=== PATIENT | female | born 1995 | race Native Hawaiian/Other Pacific Islander ===

== ENCOUNTER 2016-09-25 16:34 | Inpatient (IN) | payer OTHER ==
[2016-09-25 16:54] VITALS: O2SAT 99
--- NOTE | 2016-09-25 17:56 | ED PDOC ---
HPI: Psych/Substance Abuse Time Seen by Provider: 09/25/16 17:08 Chief Complaint (Nursing): Psychiatric Evaluation Chief Complaint (Provider): suicidal ideation History Per: Patient History/Exam Limitations: no limitations Additional Complaint(s): Stella Miller is a 21 year old female, with a previous medical history of anxiety, depression and bipolar disorder, who presents to the ED via EMS for psychiatric evaluation after she expressed to [employer] that she hates her job and has been experiencing intermittent thoughts of hurting herself. Patient denies suicidal ideation, homicidal ideation or hallucinations. PMD: none provided Past Medical History Reviewed: Historical Data, Nursing Documentation, Vital Signs Vital Signs: Last Vital Signs Temp 98.1 F 09/25/16 16:45 Pulse 74 09/25/16 16:45 Resp 18 09/25/16 16:45 BP 127/77 09/25/16 16:45 Pulse Ox 99 09/25/16 16:45 - Medical History PMH: Anxiety, Bipolar Disorder, Depression - Surgical History Surgical History: No Surg Hx - Family History Family History: States: No Known Family Hx - Living Arrangements Living Arrangements: With Family - Home Medications Home Medications: Ambulatory Orders Medication Instructions Recorded QUEtiapine [SEROquel] 50 mg PO AMHS #60 tab 09/29/16 - Allergies Allergies/Adverse Reactions: Allergies Allergy/AdvReac Type Severity Reaction Status Date / Time No Known Allergies Allergy Verified 09/25/16 16:45 Review of Systems ROS Statement: Except As Marked, All Systems Reviewed And Found Negative Psych: Positive for: Suicidal ideation Physical Exam - Reviewed Nursing Documentation Reviewed: Yes Vital Signs Reviewed: Yes - Physical Exam Appears: Positive for: Well, Non-toxic, No Acute Distress Head Exam: Positive for: ATRAUMATIC, NORMAL INSPECTION, NORMOCEPHALIC Skin: Positive for: Normal Color, Warm, Dry Eye Exam: Positive for: Normal appearance ENT: Positive for: Normal ENT Inspection Neck: Positive for: Normal Cardiovascular/Chest: Positive for: Regular Rate, Rhythm Respiratory: Positive for: CNT, Normal Breath Sounds Gastrointestinal/Abdominal: Positive for: Normal Exam, Bowel Sounds, Soft Back: Positive for: Normal Inspection Neurologic/Psych: Positive for: Alert, Oriented - Laboratory Results Result Diagrams: 09/25/16 19:00 09/25/16 19:00 - ECG O2 Sat by Pulse Oximetry: 99 (RA) Pulse Ox Interpretation: Normal Medical Decision Making Medical Decision Making: Initial Impression: Suicidal ideation Initial Plan: * physical exam * crisis evaluation During initial H and P pt denied current SI however, patient admitted to pit crew support worker that she had suicidal ideation and will be placed on a 1:1 observation. 1824 - charge nurse aware of 1:1 order. 1855 - Radha Peters at bedside for 1:1. Scribe Attestation: Documented by Ml Dale, acting as a scribe for Luma Yanes PA-C. Provider Scribe Attestation: All medical record entries made by the Scribe were at my direction and personally dictated by me. I have reviewed the chart and agree that the record accurately reflects my personal performance of the history, physical exam, medical decision making, and the department course for this patient. I have also personally directed, reviewed, and agree with the discharge instructions and disposition. Disposition - Clinical Impression Clinical Impression: Suicidal ideation - Disposition Disposition Time: 19:57 Condition: STABLE - Pt Status Changed To: Hospital Disposition Of: Inpatient - Admit Certification Admit to Inpatient:: After my assessment, the patient will require hospitalization for at least two midnights. This is because of the severity of symptoms shown, intensity of services needed, and/or the medical risk in this patient being treated as an outpatient.
[2016-09-25 19:16] LABS: HEMATOCRIT 37.8 % (34.0-47.0); MEAN CELL VOLUME 90.6 fl (81.0-99.0); MEAN CORPUSCULAR HEMOGLOBIN 29.1 pg (27.0-31.0); MEAN CORPUSCULAR HGB CONC 32.2 g/dL (33.0-37.0); RED CELL DISTRIBUTION WIDTH 13.4 % (11.5-14.5); WHITE BLOOD COUNT 6.6 K/uL (4.8-10.8)
[2016-09-25 19:24] LABS: RBC URINE 3 /hpf (0-3); URINE BACTERIA FEW (<OCC); URINE BILIRUBIN NEGATIVE (NEGATIVE); URINE BLOOD NEGATIVE (NEGATIVE); URINE COLOR STRAW (YELLOW); URINE GLUCOSE (UA) NEG (Normal); URINE KETONE 20 mg/dL (NEGATIVE); URINE LEUKOCYTE ESTERASE NEG Leu/uL (Negative); URINE PROTEIN NEGATIVE (NEGATIVE); URINE UROBILINOGEN 0.2-1.0 mg/dL (0.2-1.0); WBC URINE < 1 /hpf (0-5)
[2016-09-25 19:28] LABS: ALB/GLOB RATIO 1.5 (1.0-2.1); ALCOHOL SERUM < 10 mg/dl (0-10); ALKALINE PHOSPHATASE 43 U/L (38-126); ALT/SGPT 27 U/L (9-52); AST/SGOT 24 U/L (14-36); BILIRUBIN,TOTAL 0.5 mg/dl (0.2-1.3); BLOOD UREA NITROGEN 17 mg/dl (7-17); CALCIUM 9.5 mg/dL (8.4-10.2); CARBON DIOXIDE 25 mmol/L (22-30); CHLORIDE 103 mmol/L (98-107); GFR AFRICAN-AMERICAN > 60; GLUCOSE,RANDOM 78 mg/dL (65-105); POTASSIUM 3.8 MMOL/L (3.6-5.0); SODIUM 139 mmol/l (132-148); TOTAL PROTEIN 7.7 G/DL (6.3-8.2)
[2016-09-25] MEDS ORDERED: DiphenhydrAMINE 50 mg/ml Inj IM PRN (22:27)
[2016-09-25] MEDS ORDERED: Alum-Mag Hydrox-Simethicone Susp (30 mL) PO PRN (22:27)
[2016-09-25] MEDS ORDERED: Magnesium Hydroxide Susp 30 ml UD PO PRN (22:27)
[2016-09-27 08:14] LABS: T4 5.83 ug/dl (5.5-11.0)
[2016-09-27 08:28] LABS: THYROID STIMULATING HORMONE 1.25 mIU/ML (0.46-4.68)
--- NOTE | 2016-09-27 11:22 | PCM.PYCHPN ---
Psychiatric Progress Note - Psychiatric Progress Note Patient seen today, length of contact: discussed with team Patient Chief Complaint: i hope i can go today Problems Identified/Issues Discussed: pt reports she is not feeling overly sedated, but does feel more calm. she reports she felt a little more tired in the morning than usual. she is less irritable. she is attending groups and participating. Medication Change: No Medical Record Reviewed: Yes Mental Status Examination - Cognitive Function Orientation: Person, Place, Situation, Time Memory: Intact Attention: WNL Concentration: WNL Association: WNL Fund of Knowledge: WN Decription of patient's judgement and insights: fair - Mood Mood: Anxious - Affect Affect: Other Additional comments: labile - Speech Speech: Appropriate - Formal Thought Process Formal Thought Process: No Impairment - Suicidal Ideation Suicidal Ideation: No - Homicidal Ideation Homicidal Ideation: No Goal/Treatment Plan - Goal/Treatment Plan Need for Continued Stay: Remain at risks for inpatient hospitalization, Severe functional impairment Progress Toward Problem(s) and Goals/Treatment Plan: bipolar disorder, mixed will continue current treatment disposition planning
--- NOTE | 2016-09-27 14:54 | CP.PCM.CON ---
History of Present Illness - History of Present Illness History of Present Illness: 21 y/o female with no significant PMH diagnosed with mood disorder/ bipolar disorder for the last 1 year. Patient has tried zoloft and Amitriptiline inthe past with some improvement of her symptoms. She was referred for psychiatric eval from the at her work after she expressed thoughts of suicide , stating that wanted to kill herself. Patient states that she feels very anxious, stressed and alone. Medicine consult called as part of protocol. At present denies any suicidal thoughts or ideation. She denies any CP, SOB, palpitations, PND, Orthopnea, urinary symptoms or changes in bowel movements. She is pretty active person and likes to exercise a lot Allergies ; NKDA PMH ; Bipolar / mood disorder Medications; Was on Zoloft , switched to amytriptiline and now on Seroquel Surgery ; None Family history ; Father has DM Social history ; single, family parents , brother and sister live in [place], lives with roommates in [place], denies any toxic habits, ETOH , smoking, or drug abuse, works as programer [employer] ; 10 piont review of system negative except above Review of Systems - Review of Systems All systems: reviewed and no additional remarkable complaints except Past Patient History - Infectious Disease Hx of Infectious Diseases: None - Tetanus Immunizations Tetanus Immunization: Unknown - Past Medical History & Family History Past Medical History?: Yes Past Family History: Reviewed and not pertinent - Past Social History Smoking Status: Never Smoked Chewing Tobacco Use: No Cigar Use: No Alcohol: None Drugs: Denies Home Situation {Lives}: Alone Domestic Violence: Negative - CARDIAC Hx Cardiac Disorders: No - PULMONARY Hx Respiratory Disorders: No - NEUROLOGICAL Hx Neurological Disorder: No - HEENT Hx HEENT Problems: No - RENAL Hx Chronic Kidney Disease: No - ENDOCRINE/METABOLIC Hx Endocrine Disorders: No - HEMATOLOGICAL/ONCOLOGICAL Hx Blood Disorders: No - INTEGUMENTARY Hx Dermatological Problems: No - MUSCULOSKELETAL/RHEUMATOLOGICAL Hx Musculoskeletal Disorders: No - GASTROINTESTINAL Hx Gastrointestinal Disorders: No - GENITOURINARY/GYNECOLOGICAL Hx Genitourinary Disorders: No - PSYCHIATRIC Hx Bipolar Disorder: Yes Hx Depression: Yes Hx Substance Use: Yes (Marijuana) - SURGICAL HISTORY Hx Surgeries: No - ANESTHESIA Hx Anesthesia: No Meds Allergies/Adverse Reactions: Allergies Allergy/AdvReac Type Severity Reaction Status Date / Time No Known Allergies Allergy Verified 09/25/16 16:45 - Medications Medications: Current Medications Acetaminophen (Tylenol 325mg Tab) 650 mg PO Q4 PRN PRN Reason: Pain, moderate (4-7) Al Hydrox/Mg Hydrox/Simethicone (Maalox Plus 30 Ml) 30 ml PO Q4 PRN PRN Reason: Dyspepsia Diphenhydramine HCl (Benadryl) 50 mg IM Q6 PRN PRN Reason: Extrapyramidal S/S Unable PO Diphenhydramine HCl (Benadryl) 50 mg PO HS PRN PRN Reason: Sleep Haloperidol (Haldol) 5 mg PO Q4 PRN PRN Reason: Agitation Haloperidol Lactate (Haldol) 5 mg IM Q4 PRN PRN Reason: Agitation, Unable to Take PO Lorazepam (Ativan) 2 mg IM Q4 PRN PRN Reason: Anxiety/Agitation,Unable PO Lorazepam (Ativan) 2 mg PO Q4 PRN PRN Reason: Anxiety/Agitation Magnesium Hydroxide (Milk Of Magnesia) 30 ml PO HS PRN PRN Reason: Constipation Quetiapine Fumarate (Seroquel) 25 mg PO [facility] Last Admin: 09/27/16 10:56 Dose: 25 mg Physical Exam - Constitutional Appears: Well, Non-toxic, No Acute Distress - Head Exam Head Exam: ATRAUMATIC, NORMAL INSPECTION, NORMOCEPHALIC - Eye Exam Eye Exam: EOMI, Normal appearance, PERRL Pupil Exam: NORMAL ACCOMODATION - ENT Exam ENT Exam: Mucous Membranes Moist, Normal Exam - Neck Exam Neck exam: Positive for: Full Rom, Normal Inspection - Respiratory Exam Respiratory Exam: Clear to Auscultation Bilateral, NORMAL BREATHING PATTERN. absent: Rales, Rhonchi, Wheezes - Cardiovascular Exam Cardiovascular Exam: REGULAR RHYTHM, RRR, +S1, +S2. absent: JVD - GI/Abdominal Exam GI & Abdominal Exam: Normal Bowel Sounds, Soft. absent: Distended, Guarding, Rebound, Tenderness - Rectal Exam Rectal Exam: Deferred - Extremities Exam Extremities exam: Positive for: normal capillary refill, normal inspection, pedal pulses present. Negative for: calf tenderness, pedal edema - Back Exam Back exam: NORMAL INSPECTION - Neurological Exam Neurological exam: Alert, CN II-XII Intact, Oriented x3, Reflexes Normal - Skin Skin Exam: Dry, Intact, Normal Color, Warm Results - Vital Signs Recent Vital Signs: Last Vital Signs Temp 98.2 F 09/25/16 21:08 Pulse 78 09/25/16 22:21 Resp 20 09/25/16 22:21 BP 134/68 09/25/16 21:08 Pulse Ox 99 09/25/16 21:08 - Labs Result Diagrams: 09/25/16 19:00 09/25/16 19:00 Labs: Laboratory Results - last 24 hr 09/27/16 09/27/16 07:36 07:36 Hemoglobin A1c 5.1 Triglycerides 35 Cholesterol 130 LDL Cholesterol Direct 56 HDL Cholesterol 66 Thyroxine (T4) 5.83 TSH 3rd Generation 1.25 Assessment & Plan (1) Bipolar disorder Status: Acute Priority: High Comment: Management as per psych. Patient is medically stable. Reconsult if needed.
--- NOTE | 2016-09-28 10:23 | PCM.PYCHPN ---
Psychiatric Progress Note - Psychiatric Progress Note Patient seen today, length of contact: discussed with team Patient Chief Complaint: the nurse at night said that i am on the wrong medication Problems Identified/Issues Discussed: pt reports the night nurse told her the doctor had her on the wrong medication because "i have bipolar and seroquel doesn't treat bipolar disorder." pt remains labile and can be calm and agreeable with treatment and within minutes become loud, intrusive, combative and demading to leave the hospital immediately. pt had talked to sister and was aware of plan for sister to take her to [place], this weekend or early next week, but pt still became loud, agitated and demanding discharge yesterday directly after talking to her sister. pt and this newswriter have discussed use of a mood stabilizer- lithium, to target her symptoms, however pt does not want to take mood stabilizer and was agreeable to take seroquel. she is, at this time, agreeing to the increase in seroquel dose [place] [facility] [place] Change: No Medical Record Reviewed: Yes Mental Status Examination - Cognitive Function Orientation: Person, Place, Situation, Time Memory: Intact Attention: WNL Concentration: WNL Association: [facility] Fund of Knowledge: [facility] Decription of patient's judgement and insights: variable insight, poor judgment, poor impulse control - Mood Mood: Depressed, Anxious, Other (irritable/labile) - Affect Affect: Other - Speech Speech: Appropriate (at times loud) - Formal Thought Process Formal Thought Process: Hallucinations Psychotic Thoughts and Behaviors: his "clanging" noise, has heard a voice saying her name recently. - Suicidal Ideation Suicidal Ideation: No - Homicidal Ideation Homicidal Ideation: No Goal/Treatment Plan - Goal/Treatment Plan Need for Continued Stay: Remain at risks for inpatient hospitalization, Severe functional impairment Progress Toward Problem(s) and Goals/Treatment Plan: bipolar disorder, mixed will continue current treatment increase the seroquel to 50mg bid pt is being screened for involuntary hospitalization as she is impulsive, labile and has demanded discharge. she states she has been having suicidal thoughts, she has a history of impulsive suicide attempt in march. at this time it appears the pt may be risk to secondary to this poor impulse control and her mood lability. Estimated Date of D/C: 10/02/16 - Smoking Cessation Smoking Cessation Initiated: No
--- NOTE | 2016-09-29 10:58 | PCM.PYCHDC ---
Mental Status Examination - Mental Status Examination Orientation: Person, Place, Situation, Time Memory: Intact Mood: Other (labile) Affect: Broad Speech: Appropriate Attention: WNL Concentration: WNL Association: WNL Fund of Knowledge: WNL Formal Thought Process: No Impairment Description of patient's judgement and insight: variable insight. improved judgment and impulse control Psychotic Thoughts and Behaviors: denies current A/V hallucinations Suicidal Ideation: No Current Homicidal Ideation?: No Plan: denies suicidal or homicidal thoughts Discharge Summary - Discharge Note Reason for Hospitalization: pt expressed suicidal thoughts to a counselor at work. Psychiatric History (includes Medical, Family, Personal Hx): history of treatment for depression from her primary care doctor Consultations:: List each consultation separately and include: 1. Reason for request. 2. Findings. 3. Follow-up Consultations: seen by the hospitalist Summary of Hospital Course include:: 1. Description of specific treatment plan utilized for patients during their course of treatmen. 2. Summarize the time- course for resolution of acute symptoms and/or regressed behaviors. 3. Describe issues identified and worked on during hospitalization. 4. Describe medication utilized. 5. Describe medical problems identified and treated. 6. Reassessment of suicide risk Summary of Hospital Course: pt was admitted to [facility] and oriented to the unit. pt was placed on routine safety protocols. pt was started on seroquel to address her mood symptoms. she was labile and impulsive. she did take medications. she attended groups. she was argumentative with staff and the treatment team. she demanded to leave the hospital on 2 different occasions. she signed a 48 hour notice. the patient was seen by the screeners from [facility] [place] and was not found to meet criteria for involuntary hospitalization. this press writer and the treatment team were in contact with the patient's sister, Tamiko, who will take the pt to [place] and will seek treatment for the patient in that area. the patient's mother will be arriving from [place] and will be helping to care for the patient. at the time of discharge the patient was denying suicidal or homicidal thoughts. - Final Diagnosis (DSM 5) Condition upon Discharge: STABLE DSM 5: bipolar disorder, mixed Disposition: HOME/ ROUTINE Follow-up Treatment Plan: pt will follow up with her outpt care in [place] area call 911 if any suicidal or homicidal thoughts family to arrange aftercare do not use alcohol, tobacco or other illicit substances Prescriptions/Medication Reconciliation: QUEtiapine [SEROquel] 50 mg PO AMHS #60 tab - Smoking Cessation Smoking Cessation Medication prescribed: No Reason for not providing: does not smoke - Antipsychotic Medications Pt discharged on 2 or more routine antipsychotic medications: No
[2016-09-29 12:33] VITALS: BP 126/60; PULSE 70; RESP 16; TEMP 97.9
== END 2016-09-29 12:34 | disposition home or self-care (01) | DRG 885 ==
LOC: H.ER 16:34 → H.ERHOLD 19:57 → H.PSYCH 22:01
PROVIDERS: ADMIT Psychiatry & Neurology Psychiatry; ATTEND Psychiatry & Neurology Psychiatry
PROC: GZ51ZZZ Individual Psychotherapy, Behavioral (ICD-10-PCS; 2016-09-25)
PROC: GZHZZZZ Group Psychotherapy (ICD-10-PCS; principal; 2016-09-27)
DX: F31.60 Bipolar disorder, current episode mixed, unspecified (principal); R45.851 Suicidal ideations; Z83.3 Family history of diabetes mellitus